=== PATIENT | male | born 1955 | race Caucasian/White ===

== ENCOUNTER 2016-12-19 11:33 | Emergency (ER) | payer BC ==
[~2016-12-19] VITALS: Ht 182.9 cm; Wt 111.1 kg
[2016-12-19 11:50] VITALS: BP 171/102
[2016-12-19] MEDS ORDERED: KETOROLAC TROMETHAMINE 60 MG/2 ML SYRINGE. IM ONE (12:15)
[2016-12-19] MEDS ORDERED: ORPHENADRINE CITRATE 60 MG/2 ML VIAL. IM ONE (12:15)
--- NOTE | 2016-12-19 13:03 | RAD ---
Lumbar spine, 3 views, 12/19/2016: History: Pain after tripping injury The lumbar vertebral heights are well-maintained. No fracture or dislocation is evident. There are mild to moderate scattered spurs. There are mild degenerative changes involving the facet joints in the lower lumbar spine. The paraspinous soft tissues are unremarkable. IMPRESSION: 1. Mild degenerative change. 2. No acute bony abnormality is detected. Pelvis with right hip, 3 views, 12/19/2016: No fracture or dislocation is identified. The hip joints are well-maintained with only mild marginal spurring. The soft tissues are unremarkable. IMPRESSION: No acute pelvic or right hip abnormality is detected.
[2016-12-19] MEDS ORDERED: HYDR-971 PO (13:29)
[2016-12-19] MEDS ORDERED: ORPH100T PO (13:29)
[2016-12-19] MEDS ORDERED: PRED50TA PO (13:29)
--- NOTE | 2016-12-19 13:29 | PHYS DOC ---
Past Medical History Past Medical History: Hypertension, Other Additional Past Medical Histor: sleep apnea, enlarged prostate Past Surgical History: Knee Replacement Additional Past Surgical Histo: bilat knee Alcohol Use: Occasionally Drug Use: None Adult General Chief Complaint Chief Complaint: BACK PAIN OR INJURY [facility] HPI Patient is a 61 year old male presents emergency Department today with complaint of low back pain that radiates down through his right hip into his right groin this been ongoing for the past 3 days. Patient reports a near fall when he was on the byrd 3 days ago. He states that he cut himself with an ax a Temperature full the falling down. He states that he began experiencing pain the next day. He reports it is primarily his exacerbated when he gets up and tries to move around. He denies saddle anesthesia or incontinence urine and bowel. He denies any history of spinal cord or spinal column injuries. He denies any history of neuromuscular diseases. Review of Systems Review of Systems Constitutional: Denies fever or chills [] Eyes: Denies change in visual acuity, redness, or eye pain [] HENT: Denies nasal congestion or sore throat [] Respiratory: Denies cough or shortness of breath [] Cardiovascular: No additional information not addressed in HPI [] GI: Denies abdominal pain, nausea, vomiting, bloody stools or diarrhea [] : Denies dysuria or hematuria [] Musculoskeletal: Denies back pain or joint pain [] Integument: Denies rash or skin lesions [] Neurologic: Denies headache, focal weakness or sensory changes [] Endocrine: Denies polyuria or polydipsia [] Current Medications Current Medications Current Medications Medications (Trade) Dose Ordered Sig/[facility] Start Time Stop Time Status Last Admin Dose Admin Ketorolac Tromethamine (Toradol Im) 60 mg 1X ONCE 12/19/16 12:15 12/19/16 12:16 DC 12/19/16 12:21 60 MG Orphenadrine Citrate (Norflex) 60 mg 1X ONCE 12/19/16 12:15 12/19/16 12:16 DC 12/19/16 12:21 60 MG Allergies Allergies Allergies Coded Allergies Type Severity Reaction Last Updated Verified No Known Drug Allergies 12/19/16 No Physical Exam Physical Exam Constitutional: Well developed, well nourished, no acute distress, non-toxic appearance. [] HENT: Normocephalic, atraumatic, bilateral external ears normal, oropharynx moist, no oral exudates, nose normal. [] Eyes: PERRLA, EOMI, conjunctiva normal, no discharge. [] Neck: Normal range of motion, no tenderness, supple, no stridor. [] Cardiovascular:Heart rate regular rhythm, no murmur [] Lungs & Thorax: Bilateral breath sounds clear to auscultation [] Abdomen: Bowel sounds normal, soft, no tenderness, no masses, no pulsatile masses. [] Skin: Warm, dry, no erythema, no rash. Back: Patient's back is normal in appearance without any overlying skin lesions suggestive of shingles. There is no bruising or erythema. There is tenderness to palpation to the right paraspinous soft tissues near the midline at the level of L3-S1. There is no palpable defect, deformity or spasm. There is no step-off. Patient's pelvis is normal in appearance. There is tenderness to palpation to the right inguinal groin crease without any palpable defect, deformity, instability or crepitus. Hip is stable with both flexion, extension and circumduction. Right lower extremity is neurovascular intact with capillary refill less than 2 seconds in the right foot. Extremities: No tenderness, no cyanosis, no clubbing, ROM intact, no edema. [] Neurologic: Alert and oriented X 3, normal motor function, normal sensory function, no focal deficits noted. [] Psychologic: Affect normal, judgement normal, mood normal. [] Current Patient Data Vital Signs Vital Signs Date Time Temp Pulse Resp B/P Pulse Ox O2 Delivery O2 Flow Rate FiO2 12/19/16 11:50 98.1 71 16 98 Room Air 98.1 EKG EKG [] Radiology/Procedures Radiology/Procedures 3 views of patient's lumbosacral spine, AP pelvis and 2 views of patient's right hand were performed and interpreted by the radiologist. There is no evidence of acute bony injury. There is mild to moderate degenerative changes to patient's lumbar spine as well as mild degenerative changes to his right hip. Course & Med Decision Making Course & Med Decision Making Pertinent Labs and Imaging studies reviewed. (See chart for details) [] Dragon Disclaimer Dragon Disclaimer This electronic medical record was generated, in whole or in part, using a voice recognition dictation system. Departure Departure Impression: Primary Impression: Lumbosacral strain Additional Impression: Lumbar radiculopathy, acute Disposition: 01 HOME, SELF-CARE Condition: IMPROVED Referrals: DOUGLAS METCALF (PCP) Patient Instructions: Lumbosacral Radiculopathy, Lumbosacral Strain Additional Instructions: 1. As discussed, the x-rays of your lower back and right hip show degenerative changes, but nothing from the fall you experienced 4 days ago. 2. Review the discharge instructions provided for self-care and reasons to return to the emergency department. 3. Take the medication as prescribed. 4. Follow-up with your primary care doctor within 7-10 days. Scripts Prednisone 50 Mg Edopic67 Mg PO DAILY inflammation #5 TAB Prov:DOUGLAS STOVER 12/19/16 Orphenadrine Citrate 100 Mg Tablet.er100 Mg PO twice a day muscle spasm #14 Prov:DOUGLAS STOVER 12/19/16 Hydrocodone/Apap 5-325 ([place] 5-325 Tablet)1 Each Tablet1 Tab PO PRN Q6HRS PRN PAIN #15 TAB Prov:DOUGLAS STOVER 12/19/16 Problem Qualifiers DOUGLAS STOVER Dec 19, 2016 13:29
== END 2016-12-19 13:34 | disposition home or self-care (01) ==
LOC: ER 11:33
DX: S39.012A Strain of muscle, fascia and tendon of lower back, initial encounter (principal); M54.16 Radiculopathy, lumbar region; I10 Essential (primary) hypertension; G47.30 Sleep apnea, unspecified; N40.0 Benign prostatic hyperplasia without lower urinary tract symptoms; Z96.653 Presence of artificial knee joint, bilateral
CPT/HCPCS: 72100; 73502; 96372; 99284; J1885; J2360

== ENCOUNTER 2016-12-22 10:48 | Emergency (ER) | payer BC ==
[~2016-12-22] VITALS: Ht 182.9 cm; Wt 111.1 kg
[~2016-12-22 10:48] MED LIST: HYDR-971 PO; ORPH100T PO; PRED50TA PO
[2016-12-22] MEDS ORDERED: MECLIZINE HCL 12.5 MG TABLET. PO ONE (11:30)
--- NOTE | 2016-12-22 12:32 | EKG ---
[facility] [address] [place] [address] Test Date: 2016-12-22 Test Time: 11:07:14 Pat Name: MITCHEL ANDREW Department: Room: Gender: M [employer]: : 1955 Requested By: MEGAN GABRIEL Order Number: [id number] Reading MD: Measurements Intervals [place] Rate: 67 P: 37 WA: 132 QRS: -8 QRSD: 94 T: 34 QT: 396 QTc: 421 Interpretive Statements SINUS RHYTHM LEFTWARD AXIS RI6.01 Unconfirmed report No previous ECG available for comparison
[2016-12-22 12:34] VITALS: BP 146/85
[2016-12-22] MEDS ORDERED: MECL25TA3 PO (13:01)
--- NOTE | 2016-12-22 13:02 | PHYS DOC ---
Past Medical History Past Medical History: Hypertension, Other Additional Past Medical Histor: sleep apnea, enlarged prostate Past Surgical History: Tonsillectomy Additional Past Surgical Histo: BX KNEE CARTILAGE, NASAL SX Alcohol Use: Occasionally Drug Use: None Adult General Chief Complaint Chief Complaint: DIZZY/LIGHT HEADED HPI HPI 61-year-old male presenting to the emergency department today with vertigo symptoms. It started after he started his medication that was given to him for recent ER visit for low back pain. He describes that the room is spinning. It is worse when he moves around and improved with rest. Location in her ear. Duration intermittent. No alleviating factors. Review of systems is negative for chest pain shortness of breath. He denies it being sudden in onset. He denies any numbness weakness tingling slurred speech vision changes. All other review of systems is negative unless otherwise noted in history of present illness. Review of Systems Review of Systems SEE ABOVE. Current Medications Current Medications Current Medications Medications (Trade) Dose Ordered Sig/[facility] Start Time Stop Time Status Last Admin Dose Admin Meclizine HCl (Antivert) 25 mg 1X ONCE 12/22/16 11:30 12/22/16 11:31 DC 12/22/16 11:25 25 MG Allergies Allergies Allergies Coded Allergies Type Severity Reaction Last Updated Verified No Known Drug Allergies 12/19/16 No Physical Exam Physical Exam Constitutional: Well developed, well nourished, no acute distress, non-toxic appearance. [] HENT: Normocephalic, atraumatic, bilateral external ears normal, oropharynx moist, no oral exudates, nose normal. Patient has lateral rotatory nystagmus upon both left and right lateral gaze. Eyes: PERRLA, EOMI, conjunctiva normal, no discharge. Neck: Normal range of motion, no tenderness, supple, no stridor. [] Cardiovascular:Heart rate regular rhythm, no murmur [] Lungs & Thorax: Bilateral breath sounds clear to auscultation Abdomen: Bowel sounds normal, soft, no tenderness, no masses, no pulsatile masses. [] Skin: Warm, dry, no erythema, no rash. [] Back: No tenderness, no CVA tenderness. Extremities: No tenderness, no cyanosis, no clubbing, ROM intact, no edema. [] Neurologic: Neuro exam: Mental status: Awake oriented and alert x3 Cranial nerves: Extraocular movements intact, eyebrows agapito bilaterally smile symmetric, uvula elevation, shoulder shrug intact, tongue protrusion normal Sensation: equal and normal in all extremities Strength: 5/5 in upper and lower extremities bilaterally Psychologic: Affect normal, judgement normal, mood normal. [] Current Patient Data Vital Signs Vital Signs Date Time Temp Pulse Resp B/P Pulse Ox O2 Delivery O2 Flow Rate FiO2 12/22/16 10:56 97.9 71 16 160/96 98 Room Air 97.9 EKG EKG [] Radiology/Procedures Radiology/Procedures [] Course & Med Decision Making Course & Med Decision Making Pertinent Labs and Imaging studies reviewed. (See chart for details) [] 61-year-old male presenting to the emergency department with vertiginous dizziness symptoms starting medications prescribed in last ER visit. Likely medication related. Meclizine given. Likely peripheral. On reevaluation his symptoms had improved. He was subsequent discharged home to follow-up with his primary care physician. I also recommended if his continue he could see a vertigo physical therapist for treatment. Dragon Disclaimer Dragon Disclaimer This electronic medical record was generated, in whole or in part, using a voice recognition dictation system. Departure Departure Impression: Primary Impression: Peripheral vertigo Disposition: 01 HOME, SELF-CARE Condition: STABLE Referrals: DOUGLAS METCALF (PCP) Patient Instructions: Dizziness Additional Instructions: Thank you for allowing us to participate in your care today. Followup with your primary care physician in 3 days if your symptoms do not improve. If you do not have a primary care provider you can ask for a list of our primary care providers. Return to the emergency department you have any new or concerning findings. This should be evaluated by the primary care physician and any necessary consulting services for continued management within a few days after discharge. Return to emergency room if you have any new or concerning symptoms including but not limited to fever, chills, nausea, vomiting, intractable pain, any new rashes, chest pain, shortness of air, uncontrolled bleeding, difficulty breathing, and/or vision loss. You may have been prescribed medication that can change in your level of thinking and ability to operate machinery. These medications include hydrocodone and Ativan. Also, Benadryl has been known to do this as well. Be sure to check with your pharmacist and ask if the medications you've prescribed can affect your level of consciousness. I recommend not operating heavy machinery or driving while on medication such as these. Scripts Meclizine Hcl 25 Mg Klczjn35 Mg PO PRN Q24HRS PRN DIZZINESS #10 TAB Prov:MEGAN GABRIEL MD 12/22/16 MEGAN GABRIEL MD Dec 22, 2016 13:02
[2016-12-22] MEDS ORDERED: ONDA4TAB10 SL (14:23)
== END 2016-12-22 14:31 | disposition home or self-care (01) ==
LOC: ER 10:48
DX: H81.393 Other peripheral vertigo, bilateral (principal); M54.5 Low back pain; I10 Essential (primary) hypertension; G47.30 Sleep apnea, unspecified; N40.0 Benign prostatic hyperplasia without lower urinary tract symptoms
CPT/HCPCS: 93005; 99283; J8597